=== PATIENT | female | born 1985 | race African-American/Black ===

== ENCOUNTER 2020-12-04 03:29 | Emergency (ER) | payer BC ==
[2020-12-04 03:49] VITALS: BP 134/89; PULSE 87; TEMP 98.3; BMI 26.0
[2020-12-04] MEDS ORDERED: IBUPROFEN 600 MG TABLET (FP) PO ONE ×2 (04:52→05:11)
[2020-12-04] MEDS ORDERED: ACETAMINOPHEN 500 MG TABLET (FP) PO ONE (04:52)
[2020-12-04] MEDS ORDERED: CIPROFLOXACIN 500 MG TABLET (RESTRICTED TO ID) PO ONE (04:55)
[2020-12-04] MEDS ORDERED: ACETAMINOPHEN 325 MG TABLET (FP) ONE (05:11)
== END 2020-12-04 05:17 | disposition home or self-care (01) ==
LOC: JER 03:29
DX: H60.311 Diffuse otitis externa, right ear (principal)
CPT/HCPCS: 99283-25